=== PATIENT | male | born 1970 | race Caucasian/White ===

== ENCOUNTER 2021-01-12 18:28 | Emergency (ER) | payer MEDICAID, OTHER ==
[~2021-01-12] VITALS: Ht 177.8 cm; Wt 90.9 kg
[2021-01-12 18:44] VITALS: BP 143/82
[2021-01-12] MEDS ORDERED: PENICILLIN G BENZATHINE 2,400,000 UNIT/4 ML SYRINGE IM STA (21:31)
[2021-01-12] MEDS ORDERED: CefTRIAXone 1000mg IM Kit (w/lidocaine diluent) IM STA (21:31)
[2021-01-12] MEDS ORDERED: DOXY100T67 PO (21:36)
== END 2021-01-12 21:59 | disposition home or self-care (01) ==
LOC: ER 18:29
DX: S30.821A Blister (nonthermal) of abdominal wall, initial encounter (principal); K90.0 Celiac disease; A64 Unspecified sexually transmitted disease; Z79.2 Long term (current) use of antibiotics; X58.XXXA Exposure to other specified factors, initial encounter; Y93.89 Activity, other specified; Y92.89 Other specified places as the place of occurrence of the external cause; Y99.8 Other external cause status
CPT/HCPCS: 36415; 86592; 87491; 87591; 96372; 99284; J0561; J0696

== ENCOUNTER 2021-07-25 15:26 | Emergency (ER) | payer MEDICAID ==
[~2021-07-25] VITALS: Ht 177.8 cm; Wt 93.0 kg
[2021-07-25 15:35] VITALS: BP 150/85
== END 2021-07-25 16:05 | disposition home or self-care (01) ==
LOC: ER 15:27
DX: Z13.89 Encounter for screening for other disorder (principal); F15.10 Other stimulant abuse, uncomplicated; R51.9 Headache, unspecified; Z72.89 Other problems related to lifestyle
CPT/HCPCS: 99281

== ENCOUNTER 2021-07-26 10:23 | Emergency (ER) | payer MEDICAID | END 2021-07-26 13:09 | disposition left against medical advice (07) | LOC: ER 10:23 | DX: Z02.89 Encounter for other administrative examinations (principal); Z53.21 Procedure and treatment not carried out due to patient leaving prior to being seen by health care provider ==

== ENCOUNTER 2023-08-02 00:44 | Emergency (ER) | payer MEDICAID ==
[~2023-08-02] VITALS: Ht 180.3 cm; Wt 77.3 kg
[2023-08-02 04:25] VITALS: BP 120/64; PULSE 63; RESP 16; TEMP 98.1; O2SAT 98
== END 2023-08-02 04:27 | disposition home or self-care (01) ==
LOC: ER 00:44
DX: R53.83 Other fatigue (principal); M79.604 Pain in right leg; F15.90 Other stimulant use, unspecified, uncomplicated; Z59.00 Homelessness unspecified; Z72.89 Other problems related to lifestyle
CPT/HCPCS: 99281